=== PATIENT | male | born 1950 | race Caucasian/White ===

== ENCOUNTER 2018-06-13 16:10 | Day surgery (SDC) | payer MEDICARE, BC, OTHER ==
[~2018-06-13] VITALS: Ht 170.2 cm; Wt 90.9 kg
[~2018-06-13 16:10] MED LIST: ASPI81TA83 PO; FISH1000 PO; FLON0.05; GLUC1000 PO; HYDR25TA6 PO; INSULANT SC; LISI20TA5 PO; MILKSUS OR; PERC7.5T8 OR; ZOCO40TA PO
[2018-06-13] MEDS ORDERED: LIDOCAINE 1% MDV 20ML VIAL IM ONE (17:30)
[2018-06-13] MEDS ORDERED: ADACEL/BOOSTRIX VACCINE (DIPHTH/PERTUSS/ACELL/TETANUS)0.5ML SYR (90715) IM ONE (17:30)
[2018-06-13] MEDS ORDERED: IBUPROFEN 600 MG TAB PO ONE (17:30)
[2018-06-13] MEDS ORDERED: ceFAZolin SOD 1 GM in D5W MINI-BAG PLUS 50 ML IV ONE (18:45)
--- NOTE | 2018-06-13 19:09 | REP ---
LEFT ANKLE: Four views left ankle performed. There is a nondisplaced fracture of the distal tibia medially which extends into the tibiotalar joint. No other acute fracture or dislocation is seen. The ankle mortise is anatomic. There is soft tissue disruption with air in the posterior soft tissues. Electronically Signed by Markie Avilez MD 06/13/2018 07:56 P
--- NOTE | 2018-06-13 19:23 | REP ---
RIGHT FOREARM, TWO VIEWS: There is no evidence of an acute fracture, dislocation or intrinsic bone disease. IMPRESSION: No fracture or dislocation. Electronically Signed by Markie Avilez MD 06/13/2018 07:57 P
[2018-06-13] MEDS ORDERED: INSULADS INJ (20:16)
[2018-06-13] MEDS ORDERED: METF-882 PO (20:16)
[2018-06-13] MEDS ORDERED: FISH1000 PO (20:16)
[2018-06-13] MEDS ORDERED: LISI20TA PO (20:16)
[2018-06-13] MEDS ORDERED: METO1TAB32 PO (20:16)
[2018-06-13] MEDS ORDERED: GLUCTAB61 PO (20:16)
[2018-06-13] MEDS ORDERED: ZOCO40TA PO (20:16)
[2018-06-13] MEDS ORDERED: TRUL10IN SC (20:16)
[2018-06-13] MEDS ORDERED: ASPI1TAB15 PO (20:16)
--- NOTE | 2018-06-13 20:44 | HPE ---
DATE OF ADMISSION: 06/13/2018 CHIEF COMPLAINT: Left ankle pain and laceration. HISTORY OF PRESENT ILLNESS: Around 2 o'clock this afternoon, the patient fell approximately 15 feet off of a ladder at home, injuring predominantly his left ankle. He was home alone, and it took a few hours for him to present to the emergency room. He denied any gross contamination of the wound at the time of injury. He is today complaining just of pain in his left ankle and also somewhat his right forearm. The right forearm pain has steadily subsided. He has no other active complaints. PAST MEDICAL HISTORY: Significant for: 1. Diabetes. 2. Hypertension. PAST SURGICAL HISTORY: 1. Shoulder. 2. Vasectomy plus reversal. MEDICATIONS: - aspirin 81 mg daily - Trulicity - Lantus - lisinopril/hydrochlorothiazide - metformin - metoprolol - simvastatin - MegaRed - glucosamine chondroitin REVIEW OF SYSTEMS: No fevers, chills, nausea, vomiting, diarrhea, constipation, chest pain, shortness of breath. SOCIAL HISTORY: Denies drug or alcohol abuse. He is a former smoker. ALLERGIES: None known. EXAMINATION: Awake, alert, and oriented times three, well-appearing male in no acute distress. Appropriately dressed, well nourished. HEAD: Normocephalic, atraumatic. Extraocular muscles are intact. CARDIOVASCULAR: Regular rate and rhythm. PULMONARY: No increased work of breathing. Focused examination of the left lower extremity: There is a transverse, fairly clean, 1.5 cm laceration within the Achilles tendon proximal to its insertion on the calcaneus. There is tendon edge visible extruded from the wound. There is no active bleeding. There is a small hematoma in this area. This zone of injury and laceration is at least 4-5 cm away from the medial malleolus. The skin over the medial malleolus is intact, and there is no excessive swelling in this location. He has several other smaller superficial abrasions throughout the left anterior tibia, there is not clearly exposed bone in these areas. He has 2+ dorsalis pedis and posterior tibialis pulse with sensation and motor function grossly intact dorsally and plantar. He is able to plantarflex his foot somewhat against resistance, indicating the Achilles is at least partially intact. X-rays of the right radius and ulna show no acute fracture or dislocation. Left ankle x-rays show a nondisplaced medial malleolus fracture and evidence of posterior soft tissue injury with air in the posterior soft tissues. ASSESSMENT: Complex laceration of the left ankle with tendon involvement and close proximity to a nondisplaced medial malleolus fracture in a diabetic patient. PLAN: His glucose currently is 209. He is a somewhat uncontrolled diabetic. I have asked the hospitalist to evaluate this patient and co-manage. Given that it has been approximately 6 hours or more since his laceration, the close proximity of the wound to the fracture as well as the significant tendon involvement and his medical comorbidities, formal operative incision, debridement of devitalized tissue, irrigation, and loose closure and splinting in the operating room would be the safest course at this time. Planning to admit him postoperatively for approximately 24 hours of intravenous (IV) antibiotics and medical co-management. We will continue to monitor his status. At this time the wound has already been copiously irrigated by the emergency room staff. Sterile dressings have been applied, and he has been given a dose of IV antibiotics and his tetanus immunization was updated. TONO
--- NOTE | 2018-06-13 20:49 | CR.PDOC ---
General Date of Consultation: Jun 13, 2018 Consultation REASON FOR CONSULTATION/CHIEF COMPLAINT: management chronic med issues HISTORY OF PRESENT ILLNESS: 68 y/o male presents to ED after sustaining fall at home this afternoon off his ladder, landed on right shoulder/arm and left ankle and right abreu. No preceding SOB, palpitations, dizziness, chest pain. He states he just missed a rung on his ladder. He is a diabetic and had HTN and DLP. He is going to have surgery for left ankle open fracture tonight with Orthopedics, medicine consulted for management of chronic medical issues. ALLERGIES: Please see below. HOME MEDICATIONS: Please see below. PAST MEDICAL HISTORY: dm2, htn, dlp SOCIAL HISTORY: lives at home with , no tobacco, drug or etoh use. REVIEW OF SYSTEMS: CONSTITUTIONAL: no change in weight recently, appetite had been good, in usual good state of health prior to fall today HEENT: no headache or change in vision CARDIOVASCULAR: no chest pain, syncope or palpitations RESPIRATORY: no sob or wheeze nor cough GENITOURINARY: no pain with urination or abdominal discomfort MUSCULOSKELETAL: no new aches or pains aside from left ankle GASTROINTESTINAL: no n/v or diarrhea, no constipation SKIN: abrasion on right abreu and left ankle area PHYSICAL EXAMINATION: VITAL SIGNS: Please see below. GENERAL APPEARANCE: laying in bed prone, comfortable, conversant, left ankle suspended off of bed HEENT: EOMI, NCAT, moist mucus membranes RESPIRATORY: cta b/l, no wheezing, rales or rhonchi CARDIOVASCULAR: normal s1 and s2, no murmurs, rubs or gallops ABDOMEN: soft, no pain to palpation, non distended, nabsx4, no rebound, no guarding EXTREMITIES: left ankle bandage and right ankle anteriorly has small bandage covering small abrasion he sustained on fall, no edema, cyanosis or mottling NEUROLOGICAL: no deficits appreciated PSYCHIATRIC: affect appropriate LABORATORY DATA: Please see below. ASSESSMENT/PLAN: 68 y/o male admitted for surgical correction of left ankle open fracture this evening.Medicine consult for chronic medical issues. 1. DM2-can resume oral hypoglycemics tomorrow and reduced level of home SQ insulin therapy 2. HTN -Pending BP post-op, may resume home beta-nabil therapy after surgery tomorrow -aspirin therapy ideally is held 7 days prior to surgery, however pt may resume post-op after 7 days 3. DLP -May resume statin therapy tomorrow after surgery 4. Left ankle fracture -surgical correction with Ortho tonight, pain mgmt will be per primary team (Ortho) Vital Signs/I&O Vital Signs Date Time Temp Pulse Resp B/P (MAP) Pulse Ox O2 Delivery O2 Flow Rate FiO2 06/13/18 16:40 06/13/18 16:11 97.3 73 16 99 Room Air Laboratory Data Labs 24H Laboratory Tests 2 06/13/18 19:31: Bedside Glucose (Misc Panel) 209H Allergies Coded Allergies: No Known Allergies (Verified Allergy, 01/06/03) Home Medications Scheduled (Glucosamine Chondroitin D) 1 Tab Tab, 1 TAB PO DAILY, (Reported) (Trulicity) 0.75 Mg/0.5 Ml Inj, 0.75 MG SC QWEEK, (Reported) MONDAY (Lisinopril/Hydrochlorothi 20-12.5 mg) 1 Tab Tab, 1 TAB PO DAILY, (Reported) Aspirin (Aspirin) 81 Mg Tab, 81 MG PO DAILY, (Reported) Fish Oil (Fish Oil) 1,000 Mg Cap, 1,000 MG PO DAILY, (Reported) Insulin Glargine (Lantus) 100 Unit/Ml Inj, 60 UNIT INJ DAILY, (Reported) Metformin Hydrochloride (Metformin Hydrochloride E) 1,000 Mg Tab, 1,000 MG PO DAILY, (Reported) Metoprolol Succinate (Metoprolol Succinate ER) 25 Mg Tab, 25 MG PO DAILY, (Reported) Simvastatin - High Dose (Zocor) 40 Mg Tab, 40 MG PO DAILY, (Reported) GME ATTESTATION GME ATTESTATION My faculty preceptor for this patient encounter was physically present during the encounter and was fully available. All aspects of the patient interview, examination, medical decision making process, and medical care plan development were reviewed and approved by the faculty preceptor. The faculty preceptor is aware and concurs with the plan as stated in the body of this note and will attest to such by his/her cosignature. COLETTE YE DO Jun 13, 2018 20:49
[2018-06-13] MEDS ORDERED: fentaNYL 100 MCG/2 ML INJECTION (J3010) As Ordered ONE (21:35)
[2018-06-13] MEDS ORDERED: PROPOFOL 200 MG/20 ML VIAL As Ordered ONE ×2 (21:35→23:09)
[2018-06-13] MEDS ORDERED: ONDANSETRON 4MG/2ML VIAL (J2405) As Ordered ONE (21:35)
[2018-06-13] MEDS ORDERED: MIDAZOLAM INJ 2 MG/2 ML VIAL (J2250) As Ordered ONE (21:35)
[2018-06-13] MEDS ORDERED: LIDOCAINE 2% INJ 100 MG/5 ML SDV (FOR ANES.) As Ordered ONE (21:35)
[2018-06-13] MEDS ORDERED: ceFAZolin 2 GM/D5W 50 ML IV BAG (J0690 PER 500MG) As Ordered ONE (22:46)
[2018-06-13] MEDS ORDERED: LIDOCAINE 1% SDV INJ 30 ML VIAL As Ordered ONE (22:56)
[2018-06-14] VITALS (7 sets, daily range): BP systolic 110–125; BP diastolic 59–74
[2018-06-14] MEDS ORDERED: PERCOCET 5MG/325MG TAB PO PRN
[2018-06-14] MEDS ORDERED: LR 1,000 ML IV SCH
[2018-06-14] MEDS ORDERED: fentaNYL 100 MCG/2 ML INJECTION (J3010) IV PRN
[2018-06-14] MEDS ORDERED: HYDROMORPHONE HCL 0.5 MG/ 0.5 ML SYRINGE (J1170 PER 1) IV PRN
[2018-06-14] MEDS ORDERED: ONDANSETRON 4MG/2ML VIAL (J2405) IV PRN
[2018-06-14 00:04] LABS: HEMATOCRIT 37.6 % (42.0-52.0); HEMOGLOBIN 12.5 g/dl (13.5-17.5); MEAN CORPUSCULAR HEMOGLOBIN 31.6 pg (27.0-33.0); MEAN CORPUSCULAR HGB CONC 33.2 g/dl (32.0-36.5); MEAN CORPUSCULAR VOLUME 95.2 fl (80.0-96.0); PLATELET COUNT, AUTOMATED 277 10^3/uL (150-450); RED BLOOD COUNT 3.95 10^6/uL (4.30-6.10)
[2018-06-14 00:32] LABS: ALBUMIN 3.2 GM/DL (3.2-5.2); BILIRUBIN,TOTAL 0.3 MG/DL (0.2-1.0); CALCIUM LEVEL 7.9 MG/DL (8.8-10.2); CREATININE FOR GFR 1.45 MG/DL (0.70-1.30); GLOMERULAR FILTRATION RATE 51.5 (>49); POTASSIUM SERUM 3.6 MEQ/L (3.5-5.1); TOTAL PROTEIN 6.3 GM/DL (6.4-8.2)
[2018-06-14 06:28] LABS: HEMATOCRIT 37.2 % (42.0-52.0); HEMOGLOBIN 12.5 g/dl (13.5-17.5); MEAN CORPUSCULAR HEMOGLOBIN 31.6 pg (27.0-33.0); MEAN CORPUSCULAR HGB CONC 33.6 g/dl (32.0-36.5); MEAN CORPUSCULAR VOLUME 94.2 fl (80.0-96.0); PLATELET COUNT, AUTOMATED 266 10^3/uL (150-450); RED BLOOD COUNT 3.95 10^6/uL (4.30-6.10); WHITE BLOOD COUNT 9.2 10^3/uL (4.0-10.0)
[2018-06-14 06:45] LABS: ALBUMIN 3.2 GM/DL (3.2-5.2); ALT/SGPT 29 U/L (12-78); BILIRUBIN,TOTAL 0.5 MG/DL (0.2-1.0); BLOOD UREA NITROGEN 21 MG/DL (7-18); CALCIUM LEVEL 8.1 MG/DL (8.8-10.2); CARBON DIOXIDE LEVEL 29 MEQ/L (21-32); CHLORIDE LEVEL 107 MEQ/L (98-107); CREATININE FOR GFR 1.26 MG/DL (0.70-1.30); GLOMERULAR FILTRATION RATE > 60.0 (>49); GLUCOSE, FASTING 138 MG/DL (70-100); POTASSIUM SERUM 3.8 MEQ/L (3.5-5.1); SODIUM LEVEL 141 MEQ/L (136-145); TOTAL PROTEIN 6.4 GM/DL (6.4-8.2)
[2018-06-14] MEDS ORDERED: PERC5TAB12 PO (07:38)
[2018-06-14] MEDS ORDERED: KEFL500C17 PO (07:38)
[2018-06-14] MEDS ORDERED: metFORMIN (GLUCOPHAGE) 1000 MG TABLET PO SCH (08:00)
--- NOTE | 2018-06-14 08:20 | REP ---
Left ankle: Three views. History: Postop. Findings: Three views of the left ankle are obtained in plaster cast material which obscures fine bone detail. No malalignment is seen. There is some spurring at the ankle. Electronically Signed by Sonu Leroy MD 06/14/2018 08:41 A
[2018-06-14] MEDS ORDERED: SIMVASTATIN 40 MG TAB PO SCH (09:00)
[2018-06-14] MEDS ORDERED: LEVEMIR (INSULIN DETEMIR) 1 UNITS/0.01ML SC SCH (09:00)
[2018-06-14] MEDS ORDERED: METOPROLOL SUCC *XL* 25MG TAB (TopROL *XL*) PO SCH (09:00)
[2018-06-14] MEDS ORDERED: OMEGA-3 1000MG CAPSULE PO SCH (09:00)
[2018-06-14] MEDS ORDERED: hydroCHLOROthiazide 12.5 MG CAPSULE PO SCH (09:00)
[2018-06-14] MEDS ORDERED: LISINOPRIL 20 MG TAB PO SCH (09:00)
[2018-06-14] MEDS ORDERED: ASPIRIN 81 MG ENTERIC TAB PO SCH (09:00)
--- NOTE | 2018-06-14 09:18 | RO ---
DATE OF SURGERY: 06/13/2018 PREPROCEDURE DIAGNOSES: Left ankle Achilles tendon laceration and medial malleolus fracture. POSTOPERATIVE DIAGNOSES: Left ankle Achilles tendon laceration and medial malleolus fracture. PROCEDURE PERFORMED: Left ankle Achilles irrigation and debridement. SURGEON: Dr. Gokul Conroy PROGRAM DIR: None. ANESTHESIA: Local plus monitored sedation. ESTIMATED BLOOD LOSS: 5 mL. IMPLANTS: No implants. DRAINS: No drains. SPECIMENS: None. COMPLICATIONS: None. DESCRIPTION OF PROCEDURE: The patient was identified in the preoperative holding area by name, medical record number, and date of . The surgical site was marked in consultation with the patient and he was evaluated by anesthesia. He was brought back to the operative suite on the [facility] and transferred to the OR table. At this point, he was sedated and the left lower extremity was sterilely prepped and draped in the usual fashion. Prior to beginning the procedure, a final time out was performed. He was given IV antibiotics, Ancef 2 grams prior to incision. I began the procedure by debriding a small amount of devitalized tissue, essentially ends of the Achilles tendon, which were extruded from the wound. I next probed the wound, which was clean and linear, did not identify any significant gross contamination. This laceration site did not definitely communicate with the fracture hematoma, although certainly was within close proximity. The wound was next copiously irrigated using plain normal saline under gravity pressure with cystoscopy tubing. The wound was next closed using nylon sutures. He had some superficial abrasions on the anterior leg, which were cleaned and dressed. Next, a well-padded molded L and U splint was applied. At this time, a superficial abrasion on the right leg was also dressed, it was irrigated, washed, cleaned and sterile dressings were applied. The patient was next brought out of anesthesia and transferred to Post Anesthesia Care Unit in stable condition.
[2018-06-14] MEDS ORDERED: ceFAZolin SOD 1 GM in D5W MINI-BAG PLUS 50 ML IV ONE (11:00)
== END 2018-06-14 11:20 | disposition home or self-care (01) ==
LOC: M ED 16:10 → M SDC 20:00 → M MS5PR 06-14 00:25 → M SDC 06-14 11:20
DX: S86.022A Laceration of left Achilles tendon, initial encounter (principal); S82.55XA Nondisplaced fracture of medial malleolus of left tibia, initial encounter for closed fracture; I10 Essential (primary) hypertension; E11.9 Type 2 diabetes mellitus without complications; E78.5 Hyperlipidemia, unspecified; Z79.899 Other long term (current) drug therapy; Z79.82 Long term (current) use of aspirin; Z79.84 Long term (current) use of oral hypoglycemic drugs; W11.XXXA Fall on and from ladder, initial encounter; Y92.009 Unspecified place in unspecified non-institutional (private) residence as the place of occurrence of the external cause; Y93.89 Activity, other specified; Y99.8 Other external cause status
CPT/HCPCS: 11043; 12001; 36415; 73090; 73610; 80053; 85027; 90715; 97116; 97161; 97530; 99284; G8978; G8979; G8980; J0690; J2250; J2405; J3010

== ENCOUNTER 2018-10-18 08:21 | Day surgery (SDC) | payer MEDICARE, BC, OTHER ==
[~2018-10-18] VITALS: Ht 170.2 cm; Wt 90.7 kg
[~2018-10-18 08:21] MED LIST changes: +ASPI1TAB15 PO; +GAS1CHW PO; +GLUCTAB61 PO; +INSULADS INJ; +KEFL500C17 PO; +LISI20TA PO; +METF-882 PO; +METO1TAB32 PO; +PERC5TAB12 PO; +TRUL0.5I SC; +TRUL10IN SC
[2018-10-18] MEDS ORDERED: NS 1,000 ML IV ONE (08:30)
[2018-10-18] MEDS ORDERED: LIDOCAINE 2% INJ 100 MG/5 ML SDV (FOR ANES.) As Ordered ONE (09:39)
[2018-10-18] MEDS ORDERED: PROPOFOL 200 MG/20 ML VIAL As Ordered ONE (09:39)
--- NOTE | 2018-10-18 09:53 | ROOR ---
Patient Name: Teja Sánchez Procedure Date: 10/18/2018 9:26 AM Date of : 1950 Age: 68 Room: [facility] Gender: Male Note Status: Finalized Procedure: Colonoscopy Indications: High risk colon cancer surveillance: Personal history of colonic polyps, Last colonoscopy: July 2013 Providers: Grover MENDENHALL MD Referring MD: Frandy Wilkerson MD Requesting Provider: Medicines: Monitored Anesthesia Care Complications: No immediate complications. Procedure: Pre-Anesthesia Assessment: - The heart rate, respiratory rate, oxygen saturations, blood pressure, adequacy of pulmonary ventilation, and response to care were monitored throughout the procedure. The Colonoscope was introduced through the anus and advanced to the cecum, identified by appendiceal orifice and ileocecal valve. The colonoscopy was performed without difficulty. The patient tolerated the procedure well. The quality of the bowel preparation was good. Findings: The perianal and digital rectal examinations were normal. Two sessile polyps were found in the sigmoid colon and splenic flexure. The polyps were 4 to 5 mm in size. These polyps were removed with a cold snare. Resection and retrieval were complete. Mild sigmoid diverticulosis and small internal hemorrhoids. The exam was otherwise without abnormality on direct and retroflexion views. Impression: - Two 4 to 5 mm polyps in the sigmoid colon and at the splenic flexure, removed with a cold snare. Resected and retrieved. - Mild sigmoid diverticulosis and small internal hemorrhoids. - The examination was otherwise normal on direct and retroflexion views. Recommendation: - Repeat colonoscopy in 5 years for surveillance. Grover Mendenhall MD Grover MENDENHALL MD 10/18/2018 9:53:03 AM Electronically signed by Grover MENDENHALL MD Number of Addenda: 0 Note Initiated On: 10/18/2018 9:26 AM Estimated Blood Loss: Estimated blood loss: none.
[2018-10-18 10:25] VITALS: BP 138/76
== END 2018-10-18 10:32 | disposition home or self-care (01) ==
LOC: M OPP 08:21
PROVIDERS: ATTEND Internal Medicine Gastroenterology
DX: D12.5 Benign neoplasm of sigmoid colon (principal); D12.3 Benign neoplasm of transverse colon; K57.30 Diverticulosis of large intestine without perforation or abscess without bleeding; K64.8 Other hemorrhoids; Z86.010 Personal history of colon polyps

== ENCOUNTER → 2020-06-03 | Outpatient (REF) | payer MEDICARE, OTHER ==
[~2020-06-03] MED LIST changes: +ASPI-546 PO; -ASPI1TAB15 PO; -GAS1CHW PO; -LISI20TA PO; +LISI20TA35 PO; +SIME80TA12 PO
== END ==
LOC: M LAB REF 12:24
PROVIDERS: ATTEND Family Medicine
DX: Z01.89 Encounter for other specified special examinations (principal)

== ENCOUNTER → 2021-03-30 | Outpatient (REF) | payer MEDICARE, OTHER | LOC: M LAB REF 13:20 | PROVIDERS: ATTEND Family Medicine | DX: I49.3 Ventricular premature depolarization (principal) ==

== ENCOUNTER → 2021-09-20 | Outpatient (REF) | payer MEDICARE, OTHER | LOC: M LAB REF 12:49 | PROVIDERS: ATTEND Family Medicine | DX: D75.839 Thrombocytosis, unspecified (principal); D72.829 Elevated white blood cell count, unspecified; D64.9 Anemia, unspecified ==

== ENCOUNTER → 2022-11-24 | Outpatient (CLI) | payer MEDICARE, BC, OTHER ==
[~2022-11-24] MED LIST changes: +ISOVUE-370 76% 100ML VIAL As Ordered ONE; +SIMV-254 PO
== END ==
LOC: M RAD 09:49
PROVIDERS: ATTEND Internal Medicine Cardiovascular Disease
DX: I71.21 Aneurysm of the ascending aorta, without rupture (principal); R06.1 Stridor; J44.9 Chronic obstructive pulmonary disease, unspecified
CPT/HCPCS: 71275; Q9967

== ENCOUNTER 2024-03-29 07:03 | Day surgery (SDC) | payer MEDICARE, BC ==
[~2024-03-29] VITALS: Ht 170.2 cm; Wt 77.6 kg
[~2024-03-29 07:03] MED LIST changes: +ATOR40TA75 PO; +FARX1TAB3 PO; -ISOVUE-370 76% 100ML VIAL As Ordered ONE; +LANTINJ4 SQ; +NS 1,000 ML IV ONE; +OMEG10002 PO; +TIRZ5PEN SQ
[2024-03-29 08:54] VITALS: TEMP 98.9
[2024-03-29] MEDS ORDERED: LIDOCAINE 2% 100MG/5ML SDV (FOR ANES.) As Ordered ONE (09:05)
[2024-03-29] MEDS ORDERED: propofoL 500 MG/50 ML VIAL As Ordered ONE (09:05)
[2024-03-29 09:14] VITALS: BP 102/53; O2SAT 97
== END 2024-03-29 09:26 | disposition home or self-care (01) ==
LOC: M OPP 07:03
PROVIDERS: ATTEND Internal Medicine Gastroenterology
DX: Z12.11 Encounter for screening for malignant neoplasm of colon (principal); Z86.010 Personal history of colon polyps; I10 Essential (primary) hypertension; E78.5 Hyperlipidemia, unspecified; E11.9 Type 2 diabetes mellitus without complications; Z79.84 Long term (current) use of oral hypoglycemic drugs; Z79.899 Other long term (current) drug therapy

== ENCOUNTER → 2024-08-30 | Outpatient (CLI) | payer MEDICARE, BC ==
[~2024-08-30] MED LIST changes: -NS 1,000 ML IV ONE
[2024-08-30 16:13] LABS: BLOOD UREA NITROGEN 27 MG/DL (9-23); CALCIUM LEVEL 9.6 MG/DL (8.3-10.6); CARBON DIOXIDE LEVEL 26 MMOL/L (20-31); CHLORIDE LEVEL 103 MMOL/L (98-107); CREATININE FOR GFR 1.23 MG/DL (0.70-1.30); CREATININE, URINE 105.8 MG/DL; GLOMERULAR FILTRATION RATE > 60.0 (>42); GLUCOSE, FASTING 134 MG/DL (74-106); MAU/CREAT RATIO 61.4 MCG/MG (0.0-30.0); POTASSIUM SERUM 4.5 MMOL/L (3.5-5.1); SODIUM LEVEL 135 MMOL/L (136-145)
[2024-08-30 16:25] LABS: THYROID STIMULATING HORMONE 1.701 uIU/ML (0.55-4.78)
[2024-08-30 16:28] LABS: FREE T4 1.84 NG/DL (0.89-1.76)
== END ==
LOC: M PLALAB 10:27
PROVIDERS: ATTEND Nurse Practitioner Family
DX: E11.65 Type 2 diabetes mellitus with hyperglycemia (principal)

== ENCOUNTER → 2024-08-30 | Outpatient (CLI) | payer MEDICARE, BC ==
[2024-08-30 15:43] LABS: BASO # 0.1 10^3/uL (0.0-0.2); BASO % 0.7 % (0.0-1.0); EOS # 0.5 10^3/uL (0.0-0.5); EOS % 5.5 % (0.0-3.0); HEMATOCRIT 43.2 % (42.0-52.0); HEMOGLOBIN 14.2 g/dl (13.5-17.5); LYMPH # 1.6 10^3/uL (1.5-5.0); LYMPH % 18.5 % (24.0-44.0); MEAN CORPUSCULAR HEMOGLOBIN 31.9 pg (27.0-33.0); MEAN CORPUSCULAR HGB CONC 32.9 g/dl (32.0-36.5); MEAN CORPUSCULAR VOLUME 97.1 fl (80.0-96.0); MONO # 0.7 10^3/uL (0.0-0.8); MONO % 7.9 % (2.0-8.0); NEUTROPHILS # 5.9 10^3/uL (1.5-8.5); NEUTROPHILS % 67.1 % (36.0-66.0); PLATELET COUNT, AUTOMATED 427 10^3/uL (150-450); RED BLOOD COUNT 4.45 10^6/uL (4.30-6.10); WHITE BLOOD COUNT 8.8 10^3/uL (4.0-10.0)
[2024-08-30 15:52] LABS: HEMOGLOBIN A1c 6.5 % (4.0-6.0)
[2024-08-30 15:59] LABS: ERYTHROCYTE SEDIMENTATION RATE 8 mm/hr (0-20)
[2024-08-30 16:14] LABS: ALKALINE PHOSPHATASE 78 U/L (40-129); ALT/SGPT 21 U/L (7.0-40); AST/SGOT 17 U/L (<34); BILIRUBIN,TOTAL 0.6 MG/DL (0.3-1.2); BLOOD UREA NITROGEN 27 MG/DL (9-23); CALCIUM LEVEL 9.2 MG/DL (8.3-10.6); CARBON DIOXIDE LEVEL 26 MMOL/L (20-31); CHLORIDE LEVEL 101 MMOL/L (98-107); CREATININE FOR GFR 1.22 MG/DL (0.70-1.30); GLOMERULAR FILTRATION RATE > 60.0 (>42); GLUCOSE, FASTING 133 MG/DL (74-106); POTASSIUM SERUM 4.6 MMOL/L (3.5-5.1); SODIUM LEVEL 137 MMOL/L (136-145)
[2024-08-30 16:26] LABS: THYROID STIMULATING HORMONE 1.617 uIU/ML (0.55-4.78); THYROXINE (T4) 10.1 UG/DL (4.5-10.9)
[2024-08-30 16:28] LABS: RHEUMATOID FACTOR QUANT < 3.5 IU/ML (<14)
[2024-08-30 16:29] LABS: FOLATE 15.25 NG/ML (>5.4)
[2024-08-30 16:30] LABS: FREE THYROXINE INDEX 4.1 % (1.4-3.8); T UPTAKE 40.1 % (22.5-37.0)
[2024-08-30 16:32] LABS: VITAMIN B12 LEVEL 571 PG/ML (211-911)
[2024-09-03 12:57] LABS: ANA PATTERN Nuclear, Homogeneous (NEGATIVE); ANA SCREEN, IFA POSITIVE (NEGATIVE)
[2024-09-04 02:37] LABS: VITAMIN E(ALPHA TOCOPHEROL) 7.6 mg/L (5.7-19.9); VITAMIN E(GAMMA TOCOPHEROL) < 1.0 mg/L (<=4.3)
[2024-09-04 08:17] LABS: VITAMIN B6,PYRIDOXAL PHOSPHATE 11.9 ng/mL (2.1-21.7)
== END ==
LOC: M PLALAB 10:25
PROVIDERS: ATTEND Psychiatry & Neurology Neurology
DX: E07.9 Disorder of thyroid, unspecified (principal); E53.8 Deficiency of other specified B group vitamins; R41.3 Other amnesia; E11.65 Type 2 diabetes mellitus with hyperglycemia

== ENCOUNTER 2024-10-11 10:09 | Emergency (ER) | payer MEDICARE, BC ==
[~2024-10-11] VITALS: Ht 170.2 cm; Wt 75.0 kg
[2024-10-11] MEDS: NS 500 ML IV ONE (10:41)
[2024-10-11 11:08] LABS: BASO % 0.1 % (0.0-1.0); EOS # 0.4 10^3/uL (0.0-0.5); EOS % 4.1 % (0.0-3.0); HEMATOCRIT 38.6 % (42.0-52.0); HEMOGLOBIN 12.9 g/dl (13.5-17.5); LYMPH # 0.6 10^3/uL (1.5-5.0); LYMPH % 6.7 % (24.0-44.0); MEAN CORPUSCULAR HEMOGLOBIN 31.9 pg (27.0-33.0); MEAN CORPUSCULAR HGB CONC 33.4 g/dl (32.0-36.5); MEAN CORPUSCULAR VOLUME 95.5 fl (80.0-96.0); MONO # 1.1 10^3/uL (0.0-0.8); MONO % 12.1 % (2.0-8.0); NEUTROPHILS # 7.1 10^3/uL (1.5-8.5); NEUTROPHILS % 76.6 % (36.0-66.0); PLATELET COUNT, AUTOMATED 395 10^3/uL (150-450); RED BLOOD COUNT 4.04 10^6/uL (4.30-6.10); WHITE BLOOD COUNT 9.3 10^3/uL (4.0-10.0)
[2024-10-11 11:29] LABS: LIPASE 42 U/L (12-53)
[2024-10-11 11:32] LABS: ALKALINE PHOSPHATASE 84 U/L (40-129); ALT/SGPT 17 U/L (7.0-40); AST/SGOT 14 U/L (<34); BILIRUBIN,DIRECT 0.2 MG/DL (<0.4); BILIRUBIN,TOTAL 0.4 MG/DL (0.3-1.2); BLOOD UREA NITROGEN 26 MG/DL (9-23); CALCIUM LEVEL 8.9 MG/DL (8.3-10.6); CARBON DIOXIDE LEVEL 31 MMOL/L (20-31); CHLORIDE LEVEL 100 MMOL/L (98-107); CK-MB VALUE MASS < 1.0 NG/ML (<3.6); CPK CREATINE PHOSPHOKINASE 48 U/L (46-171); CREATININE FOR GFR 1.18 MG/DL (0.70-1.30); GLOMERULAR FILTRATION RATE 64.8 (>42); GLUCOSE, FASTING 191 MG/DL (74-106); MB/CK RELATIVE INDEX 2.08 (< OR =4); POTASSIUM SERUM 4.3 MMOL/L (3.5-5.1); SODIUM LEVEL 135 MMOL/L (136-145); TOTAL PROTEIN 6.3 G/DL (5.7-8.2)
[2024-10-11 11:34] LABS: FREE T4 1.25 NG/DL (0.89-1.76)
[2024-10-11] MEDS ORDERED: ISOVUE-370 76% 100ML VIAL As Ordered ONE (11:50)
[2024-10-11 12:46] LABS: CK-MB VALUE MASS < 1.0 NG/ML (<3.6)
[2024-10-11 12:50] LABS: CPK CREATINE PHOSPHOKINASE 48 U/L (46-171); MB/CK RELATIVE INDEX 2.08 (< OR =4)
[2024-10-11 14:45] VITALS: BP 120/68; TEMP 98.4; O2SAT 97
== END 2024-10-11 14:57 | disposition home or self-care (01) ==
LOC: M ED 10:09
DX: R07.9 Chest pain, unspecified (principal); J90 Pleural effusion, not elsewhere classified; E11.9 Type 2 diabetes mellitus without complications; I27.20 Pulmonary hypertension, unspecified; I51.7 Cardiomegaly; I25.10 Atherosclerotic heart disease of native coronary artery without angina pectoris; Z79.899 Other long term (current) drug therapy; Z79.4 Long term (current) use of insulin; Z79.84 Long term (current) use of oral hypoglycemic drugs
CPT/HCPCS: 71045; 71275; 80047; 80048; 80076; 82550; 82553; 83690; 83880; 84439; 84443; 84484; 85025; 87486; 87581; 87633; 87798; 93005; 93041; 94760; 96360; 96361; 99285; Q9967

== ENCOUNTER → 2024-10-18 | Outpatient (REF) | payer MEDICARE, BC ==
[2024-10-18 13:44] LABS: PERCENT SATURATION 29.3 % (19.7-50.0)
== END ==
LOC: M LAB REF 12:27
PROVIDERS: ATTEND Family Medicine
DX: D64.9 Anemia, unspecified (principal)

== ENCOUNTER → 2024-11-08 | Outpatient (CLI) | payer MEDICARE, BC | LOC: M RAD 14:29 | PROVIDERS: ATTEND Family Medicine | DX: E04.1 Nontoxic single thyroid nodule (principal) ==

== ENCOUNTER → 2025-01-31 | Outpatient (CLI) | payer MEDICARE, BC ==
[2025-01-31 14:45] VITALS: TEMP 98.1
[2025-01-31 15:11] VITALS: BP 138/71; O2SAT 99
[2025-01-31] MEDS: LIDOCAINE 1% MDV 20 ML VIAL SC STA (16:13)
== END ==
LOC: M IRPRO 14:28
PROVIDERS: ATTEND Family Medicine
DX: E04.1 Nontoxic single thyroid nodule (principal)